=== PATIENT | female | born 1950 | race Caucasian/White ===

== ENCOUNTER 2019-11-17 13:43 | Emergency (ER) | payer BC, MEDICARE, OTHER ==
[~2019-11-17] VITALS: Ht 157.5 cm; Wt 130.0 kg
[2019-11-17] MEDS ORDERED: SODIUM CHLORIDE FLUSH 10ML SYR IVF ONE (14:30)
--- NOTE | 2019-11-17 14:42 | NUR ---
PT WITH SOB X1 MONTH. PT WITH RECENT TREATMENT OF BRONCHITIS, STATES IT HAD NEVER GONE AWAY. PT DENIES HX COPD, ASTHMA. PT DENIES CP. PT TO ALL MONITORING EQUIPMENT
[2019-11-17 14:55] LABS: BASOPHILS # (AUTO) 0.05 x10^3/uL (0-0.1); BASOPHILS % (AUTO) 1 % (0-1); EOSINOPHILS # (AUTO) 0.26 x10^3/uL (0-0.4); EOSINOPHILS % (AUTO) 3 % (1-7); LYMPHOCYTES # (AUTO) 1.68 x10^3/uL (1-3.4); LYMPHOCYTES % (AUTO) 20 % (22-44); MD NO; MEAN CORPUSCULAR HEMOGLOBIN 33.9 pg (27.0-34.8); MEAN CORPUSCULAR HGB CONC 32.7 g/dL (32.4-35.8); MEAN CORPUSCULAR VOLUME 103.8 fL (80-100); MEAN PLATELET VOLUME 8.4 fL (7.4-10.4); MONOCYTES # (AUTO) 0.92 x10^3/uL (0.2-0.8); MONOCYTES % (AUTO) 11 % (2-9); NEUTROPHILS # (AUTO) 5.66 x10^3/uL (1.8-6.8); NEUTROPHILS % (AUTO) 66 % (42-75); PLATELET COUNT 320 x10^3/uL (130-400); RED BLOOD COUNT 4.08 x10^6/uL (3.82-5.3); RED CELL DISTRIBUTION WIDTH 14.4 % (9.6-15.2)
[2019-11-17 14:57] LABS: ALANINE AMINOTRANSFERASE 23 U/L (12-78); ALBUMIN 3.4 g/dL (3.4-5.0); ANION GAP 7 mmol/L (5-15); CALCIUM 8.8 mg/dL (8.5-10.1); CHLORIDE 106 mmol/L (98-107); CREATININE 0.71 mg/dL (0.55-1.02)
[2019-11-17] MEDS ORDERED: ALBUTEROL/IPRATROPIUM 2.5MG/0.5MG, 3 ML NPPB ONE (15:00)
[2019-11-17 15:01] LABS: ALKALINE PHOSPHATASE 106 U/L (45-117); BILIRUBIN,TOTAL 0.4 mg/dL (0.2-1.0); TOTAL PROTEIN 8.2 g/dL (6.4-8.2); TROPONIN I < 0.015 ng/mL (0.000-0.045)
[2019-11-17] MEDS ORDERED: ALBUTEROL/IPRATROPIUM 2.5MG/0.5MG, 3 ML ONE (15:10)
[2019-11-17 16:18] VITALS: BP 120/58
--- NOTE | 2019-11-17 16:19 | NUR ---
PT STATES MUCH RELIEF FROM BREATHING TX. PLAN FOR DC HOME
== END 2019-11-17 17:18 | disposition home or self-care (01) ==
LOC: ED 17:05
DX: R06.2 Wheezing (principal)
CPT/HCPCS: 36415; 71045; 80053; 83880; 84484; 85025; 93005; 94640; 99284; J7620

== ENCOUNTER 2020-01-15 18:22 | Inpatient (IN) | payer BC, MEDICARE, OTHER ==
[~2020-01-15] VITALS: Ht 157.5 cm; Wt 124.8 kg
--- NOTE | 2020-01-15 18:50 | NUR ---
THIS IS A 69 YO F BIB EMS W/ C/O RT KNEE PAIN 01/11 AFTER A FALL X1 MONTH AGO. PT REPORTS RECEIVING CORTIZONE AND IBUPROFEN WHEN EVALUATED 1 MONTH AGO W/ NO RELIEF. PT HAS BEEN UNABLE TO WALK X1 MONTH. DEVELOPED ECCHYMOSIS FROM RT HIP DOWN TO RT KNEE. RESP EVEN AND UNLABORED. NADN. PT RESTING ON GURNEY W/ FAMILY AT BEDSIDE AND CALL LIGHT IN REACH. DENIES FURTHER NEEDS AT THIS TIME.
[2020-01-15] MEDS ORDERED: HYDROcodone/APAP 5/325 TABLET ONE (18:55)
[2020-01-15] MEDS ORDERED: KETOROLAC 30 MG/1 ML ONE (18:55)
[2020-01-15] MEDS ORDERED: ONDANSETRON ODT 8 MG ONE (18:56)
[2020-01-15] MEDS ORDERED: ONDANSETRON ODT 8 MG PO ONE (19:00)
[2020-01-15] MEDS ORDERED: HYDROcodone/APAP 5/325 TABLET PO ONE (19:00)
[2020-01-15] MEDS ORDERED: KETOROLAC 30 MG/1 ML IM ONE (19:00)
[2020-01-15] MEDS ORDERED: METF10007 PO (19:28)
[2020-01-15] MEDS ORDERED: LEVO75TA5 PO (19:28)
[2020-01-15] MEDS ORDERED: LISI-167 PO (19:28)
[2020-01-15] MEDS ORDERED: ATOR10TA9 PO (19:28)
[2020-01-15 19:31] LABS: BASOPHILS % (AUTO) 0 % (0-1); EOSINOPHILS # (AUTO) 0.03 x10^3/uL (0-0.4); EOSINOPHILS % (AUTO) 0 % (1-7); LYMPHOCYTES # (AUTO) 1.32 x10^3/uL (1-3.4); LYMPHOCYTES % (AUTO) 10 % (22-44); MD NO; MEAN CORPUSCULAR HEMOGLOBIN 32.8 pg (27.0-34.8); MEAN CORPUSCULAR HGB CONC 32.8 g/dL (32.4-35.8); MONOCYTES # (AUTO) 0.64 x10^3/uL (0.2-0.8); MONOCYTES % (AUTO) 5 % (2-9); NEUTROPHILS # (AUTO) 10.74 x10^3/uL (1.8-6.8); NEUTROPHILS % (AUTO) 84 % (42-75); PLATELET COUNT 325 x10^3/uL (130-400); RED BLOOD COUNT 4.82 x10^6/uL (3.82-5.3)
--- NOTE | 2020-01-15 19:31 | NUR ---
PT IN RAD.
[2020-01-15 19:36] LABS: ALANINE AMINOTRANSFERASE 45 U/L (12-78); ALBUMIN 3.4 g/dL (3.4-5.0); ANION GAP 9 mmol/L (5-15); CALCIUM 10.3 mg/dL (8.5-10.1); CHLORIDE 107 mmol/L (98-107); CREATININE 0.58 mg/dL (0.55-1.02)
[2020-01-15 19:38] LABS: ALKALINE PHOSPHATASE 90 U/L (45-117); BILIRUBIN,TOTAL 0.4 mg/dL (0.2-1.0); TOTAL PROTEIN 8.3 g/dL (6.4-8.2)
--- NOTE | 2020-01-15 20:28 | NUR ---
REPORT GIVEN TO JORGE FAUSTIN. PT IS READY FOR TRANSPORT.
[2020-01-15] MEDS ORDERED: TEMAZEPAM 15 MG CAPSULE PO PRN (20:30)
[2020-01-15] MEDS ORDERED: POLYETHYLENE GLYCOL 17 GM PACKET PO PRN (20:30)
[2020-01-15] MEDS ORDERED: ACETAMINOPHEN 325 MG TABLET PO PRN (20:30)
[2020-01-15] MEDS ORDERED: ONDANSETRON 2MG/ML, 2ML IVPush PRN (20:30)
[2020-01-15] MEDS ORDERED: LABETALOL 5MG/ML, 20ML IVPush PRN (20:30)
[2020-01-15] MEDS ORDERED: BISACODYL 10 MG SUPP PR PRN (20:30)
[2020-01-15] MEDS ORDERED: ENALAPRILAT 1.25 MG/ML, 2ML IVPush PRN (20:30)
[2020-01-15] MEDS ORDERED: ONDANSETRON ODT 4 MG PO PRN (20:30)
[2020-01-15 21:52] VITALS: BP 120/76
[2020-01-15] MEDS ORDERED: TIMO5DRO33 EACHEYE (22:29)
[2020-01-15] MEDS ORDERED: LISI5TAB7 PO (22:29)
[2020-01-15] MEDS ORDERED: LATA7.5D EACHEYE (22:29)
[2020-01-15] MEDS: ENOXAPARIN 40 MG/0.4 ML SQ SCH (23:02)
[2020-01-15] MEDS: NYSTATIN OINT 15GM TP SCH (23:03)
[2020-01-15] MEDS: INSULIN LISPRO 100 UNITS/ML, PEN SQ-INSULIN SCH (23:04)
[2020-01-16 01:11] VITALS: BP 103/74
[2020-01-16 04:42] LABS: CULTURE INDICATED? YES; MICROSCOPIC INDICATED
[2020-01-16] MEDS: LEVOTHYROXINE 75 MCG TABLET PO SCH (05:05)
[2020-01-16 05:31] LABS: BASOPHILS # (AUTO) 0.07 x10^3/uL (0-0.1); BASOPHILS % (AUTO) 1 % (0-1); EOSINOPHILS # (AUTO) 0.07 x10^3/uL (0-0.4); EOSINOPHILS % (AUTO) 1 % (1-7); LYMPHOCYTES # (AUTO) 1.97 x10^3/uL (1-3.4); LYMPHOCYTES % (AUTO) 21 % (22-44); MD NO; MEAN CORPUSCULAR HEMOGLOBIN 32.9 pg (27.0-34.8); MEAN CORPUSCULAR HGB CONC 32.8 g/dL (32.4-35.8); MEAN CORPUSCULAR VOLUME 100.2 fL (80-100); MEAN PLATELET VOLUME 8.9 fL (7.4-10.4); MONOCYTES # (AUTO) 1.25 x10^3/uL (0.2-0.8); MONOCYTES % (AUTO) 14 % (2-9); NEUTROPHILS # (AUTO) 5.88 x10^3/uL (1.8-6.8); NEUTROPHILS % (AUTO) 64 % (42-75); PLATELET COUNT 308 x10^3/uL (130-400); RED BLOOD COUNT 4.46 x10^6/uL (3.82-5.3); RED CELL DISTRIBUTION WIDTH 13.1 % (9.6-15.2)
[2020-01-16 05:40] LABS: ALBUMIN 3.1 g/dL (3.4-5.0); ANION GAP 7 mmol/L (5-15); CALCIUM 9.1 mg/dL (8.5-10.1); CHLORIDE 107 mmol/L (98-107)
[2020-01-16 05:44] LABS: ALANINE AMINOTRANSFERASE 40 U/L (12-78); ALKALINE PHOSPHATASE 83 U/L (45-117); BILIRUBIN,TOTAL 0.4 mg/dL (0.2-1.0); CREATININE 0.59 mg/dL (0.55-1.02); TOTAL PROTEIN 7.3 g/dL (6.4-8.2)
[2020-01-16] MEDS: INSULIN LISPRO 100 UNITS/ML, PEN SQ-INSULIN SCH ×4 (07:12→19:55)
[2020-01-16 08:06] VITALS: BP 124/75
[2020-01-16] MEDS: CEFDINIR 300 MG CAPSULE PO SCH ×2 (08:09→20:41)
[2020-01-16] MEDS: SENNA/DOCUSATE TABLET PO SCH (08:09)
[2020-01-16] MEDS: metFORMIN 500 MG TABLET PO SCH (08:09)
[2020-01-16] MEDS: LISINOPRIL 10 MG TABLET PO SCH (08:10)
[2020-01-16] MEDS: NYSTATIN OINT 15GM TP SCH ×3 (08:10→22:18)
[2020-01-16 14:10] VITALS: BP 93/61
[2020-01-16 19:19] VITALS: BP 111/69
[2020-01-16] MEDS: ENOXAPARIN 40 MG/0.4 ML SQ SCH (20:42)
[2020-01-16] MEDS: ATORVASTATIN 10 MG TABLET PO SCH (20:42)
[2020-01-17 00:44] VITALS: BP 134/85
[2020-01-17] MEDS: LEVOTHYROXINE 75 MCG TABLET PO SCH (06:13)
[2020-01-17 07:09] VITALS: BP 114/76
[2020-01-17] MEDS: LISINOPRIL 10 MG TABLET PO SCH (07:36)
[2020-01-17] MEDS: INSULIN LISPRO 100 UNITS/ML, PEN SQ-INSULIN SCH ×4 (07:36→20:54)
[2020-01-17] MEDS: metFORMIN 500 MG TABLET PO SCH (07:36)
[2020-01-17] MEDS: CEFDINIR 300 MG CAPSULE PO SCH ×2 (07:36→20:55)
[2020-01-17] MEDS: SENNA/DOCUSATE TABLET PO SCH (07:36)
[2020-01-17] MEDS: NYSTATIN OINT 15GM TP SCH ×2 (07:37→16:16)
[2020-01-17 12:15] VITALS: BP 110/70
[2020-01-17 20:23] VITALS: BP 124/76
[2020-01-17] MEDS: ENOXAPARIN 40 MG/0.4 ML SQ SCH (20:55)
[2020-01-17] MEDS: ATORVASTATIN 10 MG TABLET PO SCH (20:57)
[2020-01-18 00:47] VITALS: BP 125/77
[2020-01-18] MEDS: NYSTATIN OINT 15GM TP SCH ×4 (02:47→21:08)
[2020-01-18] MEDS: LEVOTHYROXINE 75 MCG TABLET PO SCH (06:19)
[2020-01-18] MEDS: INSULIN LISPRO 100 UNITS/ML, PEN SQ-INSULIN SCH ×4 (07:25→21:00)
[2020-01-18 08:37] VITALS: BP 135/76
[2020-01-18] MEDS: LISINOPRIL 10 MG TABLET PO SCH (08:37)
[2020-01-18] MEDS: metFORMIN 500 MG TABLET PO SCH (08:38)
[2020-01-18] MEDS: SENNA/DOCUSATE TABLET PO SCH (08:38)
[2020-01-18] MEDS: CEFDINIR 300 MG CAPSULE PO SCH ×2 (08:38→21:08)
[2020-01-18] MEDS: ATORVASTATIN 10 MG TABLET PO SCH (08:38)
[2020-01-18 14:31] VITALS: BP 125/84
[2020-01-18 19:26] VITALS: BP 133/83
[2020-01-18] MEDS: ENOXAPARIN 40 MG/0.4 ML SQ SCH (21:08)
[2020-01-19 01:00] VITALS: BP 136/82
[2020-01-19] MEDS: LEVOTHYROXINE 75 MCG TABLET PO SCH (05:26)
[2020-01-19 06:38] VITALS: BP 118/77
[2020-01-19] MEDS: INSULIN LISPRO 100 UNITS/ML, PEN SQ-INSULIN SCH ×4 (07:00→20:49)
[2020-01-19] MEDS: SENNA/DOCUSATE TABLET PO SCH (09:00)
[2020-01-19] MEDS: NYSTATIN OINT 15GM TP SCH ×3 (09:00→20:50)
[2020-01-19] MEDS: ATORVASTATIN 10 MG TABLET PO SCH (11:47)
[2020-01-19] MEDS: metFORMIN 500 MG TABLET PO SCH (11:48)
[2020-01-19] MEDS: LISINOPRIL 10 MG TABLET PO SCH (11:48)
[2020-01-19] MEDS: CEFDINIR 300 MG CAPSULE PO SCH ×2 (11:48→20:50)
[2020-01-19 12:23] VITALS: BP 134/79
--- NOTE | 2020-01-19 15:27 | NUR ---
Green sheet implemented today for LE therex and edge of bed sitting to do self care/ADLS 2x daily with nursing Addendum: 01/19/20 at 1528 by Trang Dugan PT Amended: Links added.
[2020-01-19] MEDS: ENOXAPARIN 40 MG/0.4 ML SQ SCH (20:49)
[2020-01-19 21:00] VITALS: BP 133/83
[2020-01-20 00:57] VITALS: BP 143/83
[2020-01-20] MEDS: LEVOTHYROXINE 75 MCG TABLET PO SCH (05:20)
[2020-01-20 06:45] VITALS: BP 131/87
[2020-01-20] MEDS: INSULIN LISPRO 100 UNITS/ML, PEN SQ-INSULIN SCH ×4 (07:53→20:51)
[2020-01-20] MEDS: CEFDINIR 300 MG CAPSULE PO SCH ×2 (07:54→20:28)
[2020-01-20] MEDS: LISINOPRIL 10 MG TABLET PO SCH (07:54)
[2020-01-20] MEDS: metFORMIN 500 MG TABLET PO SCH (07:54)
[2020-01-20] MEDS: NYSTATIN OINT 15GM TP SCH ×3 (07:54→20:29)
[2020-01-20] MEDS: SENNA/DOCUSATE TABLET PO SCH (07:54)
[2020-01-20 12:00] VITALS: BP 105/71
[2020-01-20 19:52] VITALS: BP 105/72
[2020-01-20] MEDS: ATORVASTATIN 10 MG TABLET PO SCH (20:28)
[2020-01-20] MEDS: ENOXAPARIN 40 MG/0.4 ML SQ SCH (20:29)
[2020-01-21 01:54] VITALS: BP 149/82
[2020-01-21] MEDS: LEVOTHYROXINE 75 MCG TABLET PO SCH (05:02)
[2020-01-21] MEDS: INSULIN LISPRO 100 UNITS/ML, PEN SQ-INSULIN SCH ×3 (07:00→16:00)
[2020-01-21 07:41] VITALS: BP 126/78
[2020-01-21] MEDS: LISINOPRIL 10 MG TABLET PO SCH (08:15)
[2020-01-21] MEDS: CEFDINIR 300 MG CAPSULE PO SCH (08:15)
[2020-01-21] MEDS: metFORMIN 500 MG TABLET PO SCH (08:15)
[2020-01-21] MEDS: NYSTATIN OINT 15GM TP SCH ×2 (08:15→16:00)
[2020-01-21] MEDS: SENNA/DOCUSATE TABLET PO SCH (08:15)
[2020-01-21] MEDS: ATORVASTATIN 10 MG TABLET PO SCH (08:16)
[2020-01-21 13:20] VITALS: BP 105/71
[2020-01-21] MEDS ORDERED: ACET325T26 PO (14:55)
[2020-01-21] MEDS ORDERED: LISI5TAB7 PO (14:55)
== END 2020-01-21 18:08 | DRG 690 ==
LOC: ED 20:00 → EDIP 20:47 → 3N 20:52
PROVIDERS: ADMIT Internal Medicine; ATTEND Internal Medicine
PROC: 0T9B70Z Drainage of Bladder with Drainage Device, Via Natural or Artificial Opening (ICD-10-PCS; principal; 2020-01-16)
DX: N39.0 Urinary tract infection, site not specified (principal); E87.2 Acidosis; Z68.43 Body mass index [BMI] 50.0-59.9, adult; B95.4 Other streptococcus as the cause of diseases classified elsewhere; B96.20 Unspecified Escherichia coli [E. coli] as the cause of diseases classified elsewhere; D72.828 Other elevated white blood cell count; E11.9 Type 2 diabetes mellitus without complications; E66.01 Morbid (severe) obesity due to excess calories; E78.5 Hyperlipidemia, unspecified; E83.52 Hypercalcemia; E89.0 Postprocedural hypothyroidism; G89.29 Other chronic pain; I10 Essential (primary) hypertension; L89.892 Pressure ulcer of other site, stage 2; M17.11 Unilateral primary osteoarthritis, right knee; R32 Unspecified urinary incontinence; R62.7 Adult failure to thrive; W01.0XXA Fall on same level from slipping, tripping and stumbling without subsequent striking against object, initial encounter; Y93.89 Activity, other specified; Y92.091 Bathroom in other non-institutional residence as the place of occurrence of the external cause; Y99.8 Other external cause status; Z74.01 Bed confinement status; Z79.84 Long term (current) use of oral hypoglycemic drugs
CPT/HCPCS: 36415; 80053; 81001; 82550; 82962; 83735; 84100; 84443; 85025; 87077; 87086; 87147; 87186; 96372; 99285; G0378; J1650; J1885; Q0162; J1815

== ENCOUNTER 2020-04-06 18:09 | Emergency (ER) | payer MEDICARE, OTHER ==
[~2020-04-06] VITALS: Ht 157.5 cm; Wt 124.0 kg
[~2020-04-06 18:09] MED LIST: ACET325T26 PO; ATOR10TA9 PO; LATA7.5D EACHEYE; LEVO75TA5 PO; LISI-167 PO; LISI5TAB7 PO; METF10007 PO; TIMO5DRO33 EACHEYE
--- NOTE | 2020-04-06 18:41 | NUR ---
PT WHEELED TO ROOM, ABLE TO TRANSFER TO BED. NO SIGNS OF DISTRESS. WILL CONTINUE TO MONITOR.
--- NOTE | 2020-04-06 18:48 | NUR ---
REPORT GIVEN TO RAMIN MARTINEZ.
--- NOTE | 2020-04-06 18:57 | NUR ---
BEDSIDE REPORT FROM LISA RN, PT CARE TRANSFERRED AT THIS TIME. RESTING [place], FAMILY AT BS, PT NAD, RESP WNL, VSS, P/W/D, CALL LIGHT ON LAP, WCTM.
--- NOTE | 2020-04-06 19:32 | NUR ---
RN TO [employer] TO GET FOOD PER PT REQUEST. PT INFORMED THAT MEAL IS CHARGED TO VISIT ACCT. PT RESTING IN GURNEY, NAD, RESP WNL, P/W/D, WCTM. WAITING FOR RECHECK
[2020-04-06 20:47] VITALS: BP 113/55
--- NOTE | 2020-04-06 21:00 | NUR ---
LATE ENTRY: RN CALLED [facility]. EMPLOYEE AT [place] STATED THEY HAD PT ROOM NUMBER [id number], AND THAT SHE COULD BE SENT BACK TO [facility]. PT FAMILY INFORMED.
== END 2020-04-06 21:20 | disposition home or self-care (01) ==
LOC: ED 18:46
DX: M13.161 Monoarthritis, not elsewhere classified, right knee (principal); I10 Essential (primary) hypertension; E11.9 Type 2 diabetes mellitus without complications; Z86.39 Personal history of other endocrine, nutritional and metabolic disease
CPT/HCPCS: 99283

== ENCOUNTER 2021-07-10 10:00 | Observation (INO) | payer MEDICARE, OTHER ==
[~2021-07-10] VITALS: Ht 157.5 cm; Wt 122.2 kg
--- NOTE | 2021-07-10 10:20 | NUR ---
PT BIB EMS FROM [facility]. PT IS AN [place] FROM THE [place]. [facility] WAS TRYING TO GET HER PLACEMENT AT A SNF BUT PT REFUSED. PT SAID SHE WOULD RATHER GO TO ER TO GET MEDICALLY CLEARED.
[2021-07-10 11:30] LABS: ALBUMIN 2.9 g/dL (3.4-5.0); ANION GAP 6 mmol/L (5-15); CALCIUM 8.8 mg/dL (8.5-10.1); CHLORIDE 107 mmol/L (98-107); CREATININE 0.46 mg/dL (0.55-1.02)
[2021-07-10 11:32] LABS: BASOPHILS % (AUTO) 1 % (0-1); EOSINOPHILS % (AUTO) 3 % (1-7); LYMPHOCYTES % (AUTO) 25 % (22-44); MEAN CORPUSCULAR HEMOGLOBIN 33.1 pg (27.0-34.8); MEAN CORPUSCULAR HGB CONC 33.6 g/dL (32.4-35.8); MEAN PLATELET VOLUME 8.7 fL (7.4-10.4); MONOCYTES % (AUTO) 12 % (2-9); NEUTROPHILS % (AUTO) 60 % (42-75); PLATELET COUNT 323 x10^3/uL (130-400); RED BLOOD COUNT 3.82 x10^6/uL (3.82-5.3); RED CELL DISTRIBUTION WIDTH 14.5 % (9.6-15.2)
--- NOTE | 2021-07-10 16:48 | NUR ---
PT SOILED HERSELF. PT CLEANED. MARTINEZ CARE PERFORMED. UA WALKED TO LAB
[2021-07-10 17:00] LABS: MICROSCOPIC INDICATED
--- NOTE | 2021-07-10 21:29 | NUR ---
PT MOVED TO HOSPITAL BED
[2021-07-11] MEDS ORDERED: ACETAMINOPHEN 325 MG TABLET ONE ×2 (05:49→16:27)
[2021-07-11] MEDS ORDERED: ACETAMINOPHEN 325 MG TABLET PO ONE (06:00)
[2021-07-11] MEDS ORDERED: LEVO150T5 PO (07:20)
[2021-07-11] MEDS ORDERED: LISI2.5T12 PO (07:20)
--- NOTE | 2021-07-11 07:20 | NUR ---
REPORT FROM MARY FAUSTIN. MED REC UPDATED. PT CLEANED OF URINE. NO COMPLAINTS. TURNED IN BED. VSS.
--- NOTE | 2021-07-11 08:19 | NUR ---
GIVEN BREAKFAST. JOEY PLACED. ASKED MD TO ORDER HOME MEDS.
--- NOTE | 2021-07-11 08:51 | NUR ---
report to oanh oviedo. as
[2021-07-11] MEDS: TEMPLATE NON-FORMULARY MED. (Timolol Maleate 1 DROP) EACHEYE SCH (09:00)
--- NOTE | 2021-07-11 09:24 | NUR ---
PT MOVED TO ROOM 14 AT THIS TIME, PT CURRENTLY ON HOSPITAL BED, NADN AT THIS TIME, MONITORING IN PLACE, [place].
--- NOTE | 2021-07-11 09:42 | NUR ---
SPOKE WITH [facility]. THEY ARE NOT ACCEPTING PATIENTS DUE TO STAFFING
[2021-07-11] MEDS: ATORVASTATIN 10 MG TABLET PO SCH (10:03)
[2021-07-11] MEDS: metFORMIN XR 500 MG TAB.ER.24H PO SCH (10:03)
[2021-07-11] MEDS: LISINOPRIL 5 MG TABLET PO SCH (10:03)
[2021-07-11] MEDS: LEVOTHYROXINE 150 MCG TABLET PO SCH (10:03)
[2021-07-11] MEDS: ACETAMINOPHEN 325 MG TABLET PO PRN (16:27)
--- NOTE | 2021-07-11 20:49 | NUR ---
REPORT TO RAMIN MARTINEZ.
--- NOTE | 2021-07-11 21:50 | NUR ---
REPORT RECEIVED FROM MED FAUSTIN, PT CARE TRANSFERRED AT THIS TIME. PT NAD, SITTING UP IN BED IN ROOM, DENIES ADDITIONAL QUESTIONS REGARDING POC, DENIES ADDITIONAL NEEDS, BED IN LOWEST, RAILS ENGAGED, CALL LIGHT ON LAP, WCTM.
[2021-07-11] MEDS: LATANOPROST OPHTH 0.005%, 2.5ML EACHEYE SCH (22:20)
[2021-07-11] MEDS ORDERED: NYSTATIN TOPICAL POWDER 15GM TP PRN (22:30)
--- NOTE | 2021-07-11 22:33 | NUR ---
PT MEDICATED PER MAR, LINENS CHANGED AFTER BM, SO AT BS TO VISIT, DENIES ADDITIONAL NEEDS, NO OTHER CHANGES, WCTM.
--- NOTE | 2021-07-12 | NUR ---
Patient is resting comfortably in bed. Bed in lowest, rails engaged, call light on lap. EYES CLOSED, EVEN AND UNLABORED RESPIRATIONS AT THIS TIME. TM.
[2021-07-12] MEDS ORDERED: ACETAMINOPHEN 325 MG TABLET ONE ×3 (00:46→10:39)
[2021-07-12] MEDS: ACETAMINOPHEN 325 MG TABLET PO PRN ×2 (01:03→10:41)
--- NOTE | 2021-07-12 01:26 | NUR ---
PT MEDICATED PER MAR DUE TO MINOR LEG DISCOMFORT, PT REPOSITIONED FOR INCREASED COMFORT, PROVIDED ICE WATER AND NOW DECLINES ADDITIONAL NEEDS. NAD, BED IN LOWEST, RAILS ENGAGED, CALL LIGHT ON LAP, TM.
--- NOTE | 2021-07-12 03:06 | NUR ---
Patient is resting comfortably in bed. Bed in lowest, rails engaged, call light on lap. EYES CLOSED, EVEN AND UNLABORED RESPIRATIONS NOTED. WCTM.
--- NOTE | 2021-07-12 05:18 | NUR ---
Patient is resting comfortably in bed. Bed in lowest, rails engaged, call light on lap. EYES CLOSED, EVEN AND UNLABORED RESPIRATIONS NOTED. WCTM. BREAKFAST TRAY ORDERED.
--- NOTE | 2021-07-12 06:28 | NUR ---
PT LINENS CLEANED AND CHANGED, PT ASSISTED TO LAY ON OTHER SIDE WITH PILLOWS FOR COMFORT AND SUPPORT, BARRIER CREAM APPLIED SKIN PROTECTANT. PT NAD, RESTING WITH BED IN LOWEST, RAILS ENGAGED, CALL LIGHT ON LAP. DENIES ADDITIONAL QUESTIONS OR NEEDS AT THIS TIME. WCTM.
[2021-07-12] MEDS: LEVOTHYROXINE 150 MCG TABLET PO SCH (07:08)
--- NOTE | 2021-07-12 07:12 | NUR ---
MICHELLE AT BEDSIDE, REPORT TAKEN. NAD NOTED IN PT AT THIS TIME. HOB POSITIONED FOR COMFORT. CALL LIGHT IN REACH.
--- NOTE | 2021-07-12 07:15 | NUR ---
REPORT TO AISHA FAUSTIN
--- NOTE | 2021-07-12 08:33 | NUR ---
PT SITTING UP IN BED WITH TELEVISION ON, RESTING WITH EYE CLOSED. NAD NOTED AT THIS TIME. RESPIRATIONS EVEN AND UNLABORED.
[2021-07-12] MEDS: ATORVASTATIN 10 MG TABLET PO SCH (09:00)
[2021-07-12] MEDS: metFORMIN XR 500 MG TAB.ER.24H PO SCH (09:00)
[2021-07-12] MEDS: TEMPLATE NON-FORMULARY MED. (Timolol Maleate 1 DROP) EACHEYE SCH (09:00)
[2021-07-12] MEDS: LISINOPRIL 5 MG TABLET PO SCH (09:00)
--- NOTE | 2021-07-12 09:37 | NUR ---
PT TOOK HER OWN EYE DROPS FROM HOME. NONADMINISTER RECORDED IN EMAR. ERMD AWARE. AWAITING SOCIAL WORK ASSESSMENT OF PT AND PLACEMENT FOR SNF. PT GIVEN MEAL TRAY. NAD NOTED AT THIS TIME. PT WATCHING TELEVISION.
--- NOTE | 2021-07-12 10:42 | NUR ---
call light answered. pt states having knee pain. pt requesting motrin. tylenol in emar. pt agreeable to tylenol. pt medicated per order.
--- NOTE | 2021-07-12 12:15 | NUR ---
pt resting comfortably. qamar rn at bedside to assist in changing sheets and replacing purewick. pt cleaned and skin barrier cream reapplied.
--- NOTE | 2021-07-12 18:54 | NUR ---
dinner tray provided for pt. pt in good spirits as stopped by. still wants to move forward with poc.
--- NOTE | 2021-07-12 18:55 | NUR ---
mendez number is [phone] sw unable to get a hold of him all day. number here and states he will keep his phone on
--- NOTE | 2021-07-12 20:06 | NUR ---
PT RESTING COMFORTABLY. PT ATE COMPLETE MEAL. CALL LIGHT IN REACH.
[2021-07-12] MEDS: LATANOPROST OPHTH 0.005%, 2.5ML EACHEYE SCH (21:00)
--- NOTE | 2021-07-12 22:15 | NUR ---
REPORT FROM RAMIN CHAVEZ. PT RESTING IN HOSPITAL BED W EYES CLOSED. RESPIRATIONS EVEN/UNLABORED. CALL LIGHT WITHIN REACH.
--- NOTE | 2021-07-12 23:23 | NUR ---
PT CONTINUES TO REST CALMLY IN HOSPITAL BED. EVEN/REGULAR RESPIRATIONS NOTED.
--- NOTE | 2021-07-13 00:37 | NUR ---
PT RESTING IN GURNEY W EYES CLOSED. EVEN/REGULAR RESPIRATIONS NOTED.
--- NOTE | 2021-07-13 01:49 | NUR ---
PT AWAKE. SHEETS CHANGED; CLEAN PURWIC IN PLACE. BP/SPO2 WNL. PT DENIES NEEDS/COMPLAINTS.
--- NOTE | 2021-07-13 03:32 | NUR ---
PATIENT RESTING IN BED WITH EYES CLOSED. NAD. CALL JOHNSON IN REACH. WILL CONTINUE TO MONITOR.
--- NOTE | 2021-07-13 04:39 | NUR ---
PROVIDED PATIENT WITH WATER REQUESTED. PATIENT DENIES ANY OTHER NEEDS AT THIS TIME. WILL CONTINUE TO MONITOR.
--- NOTE | 2021-07-13 07:25 | NUR ---
Report from RAMIN Harvey. Pt sleeping, RR equal and unlabored. Will order breakfast and continue to monitor. Pt is in ER waiting for SNF placement. VSS. Call ballard in reach.
[2021-07-13] MEDS: TEMPLATE NON-FORMULARY MED. (Timolol Maleate 1 DROP) EACHEYE SCH (09:00)
--- NOTE | 2021-07-13 09:04 | NUR ---
Pt awake, sitting up in bed watching tv. VSS, breakfast tray ordered for pt. Pt says her is coming to see her today. Pt waiting for SNF bed will f/u with case management for ETA/Plan.
[2021-07-13] MEDS: metFORMIN XR 500 MG TAB.ER.24H PO SCH (09:45)
[2021-07-13] MEDS: ATORVASTATIN 10 MG TABLET PO SCH (09:45)
[2021-07-13] MEDS: LEVOTHYROXINE 150 MCG TABLET PO SCH (09:46)
[2021-07-13] MEDS: LISINOPRIL 5 MG TABLET PO SCH (09:46)
--- NOTE | 2021-07-13 09:48 | NUR ---
Pt provided breakfast, pt has been collections director light multiple times since this promotion writer has taken report. Pt was provided AIDET multiple times, allowed time to ask questions and informed that I am not available during times as I have other highly acute patients. Pt told me that her is coming to visit her today and she will hopefully go home.
--- NOTE | 2021-07-13 10:04 | NUR ---
Pt has her own eye drops and has been admin to herself.
--- NOTE | 2021-07-13 13:22 | NUR ---
here now keeps calling in home sales consultant light wanting to make sure we know what meds we are giving her. AIDET provided went over POC again. Also set boundries with here now re: acuity in this dept and demands of other pts. The fact that this pt refused the placement we found.
--- NOTE | 2021-07-13 15:36 | NUR ---
Pt with large loose BM, incon. of urine and stool. Pt has been in ER for 5 days with no end in site. Pt is unable to provide much assist requires x2 people to change, pt sheng has been bringing her sodas and sugary foods. Spoke with [facility] social insurance specialist who says they are still looking for placement for this pt. Pt tells this parts data writer that the only reason she can't go home is because she has no bed, that her bed had bedbugs. Pt says her is staying in a hotel. Discussed case with COBY Gilmore who placed admitting orders for this pt.
[2021-07-13] MEDS ORDERED: ENALAPRILAT 1.25 MG/ML, 2ML IVPush PRN (16:30)
[2021-07-13] MEDS ORDERED: ENOXAPARIN 40 MG/0.4 ML SQ SCH (16:30)
[2021-07-13] MEDS ORDERED: ONDANSETRON ODT 4 MG PO PRN (16:30)
[2021-07-13] MEDS ORDERED: DOCUSATE 100 MG CAPSULE PO PRN (16:30)
[2021-07-13] MEDS ORDERED: DIPHENHYDRAMINE 25 MG CAPSULE PO PRN (16:30)
--- NOTE | 2021-07-13 18:22 | NUR ---
Pt was cleaned up multiple times on day shift, pt says she does know when she is going to have BM but its easier for her just to go in a diaper. All pt belongings placed on gurney for transport to floor. Report to med/surg nurse.
[2021-07-13 20:14] VITALS: BP 131/78
[2021-07-13] MEDS: ACETAMINOPHEN 325 MG TABLET PO PRN (21:49)
[2021-07-13] MEDS: LATANOPROST OPHTH 0.005%, 2.5ML EACHEYE SCH (21:50)
[2021-07-14 00:30] VITALS: BP 133/85
[2021-07-14] MEDS: LEVOTHYROXINE 150 MCG TABLET PO SCH (05:37)
[2021-07-14 08:42] VITALS: BP 153/83
[2021-07-14] MEDS: TEMPLATE NON-FORMULARY MED. (Timolol Maleate 1 DROP) EACHEYE SCH (09:00)
[2021-07-14] MEDS: metFORMIN XR 500 MG TAB.ER.24H PO SCH (09:09)
[2021-07-14] MEDS: LISINOPRIL 5 MG TABLET PO SCH (09:09)
[2021-07-14] MEDS: ATORVASTATIN 10 MG TABLET PO SCH (09:10)
[2021-07-14 12:11] VITALS: BP 123/73
== END 2021-07-14 20:05 | disposition home or self-care (01) ==
LOC: ED 10:47 → EDIP 16:05 → 3N 07-13 18:37
PROVIDERS: ADMIT Emergency Medicine; ATTEND Hospitalist
DX: M25.569 Pain in unspecified knee (principal); Z20.822 Contact with and (suspected) exposure to COVID-19; G89.21 Chronic pain due to trauma; S50.862A Insect bite (nonvenomous) of left forearm, initial encounter; S50.861A Insect bite (nonvenomous) of right forearm, initial encounter; E89.0 Postprocedural hypothyroidism; R60.0 Localized edema; I10 Essential (primary) hypertension; E78.5 Hyperlipidemia, unspecified; M19.90 Unspecified osteoarthritis, unspecified site; E11.9 Type 2 diabetes mellitus without complications; R62.7 Adult failure to thrive; E66.01 Morbid (severe) obesity due to excess calories; Z79.84 Long term (current) use of oral hypoglycemic drugs; Z79.899 Other long term (current) drug therapy; Z72.9 Problem related to lifestyle, unspecified; Z74.01 Bed confinement status; W57.XXXA Bitten or stung by nonvenomous insect and other nonvenomous arthropods, initial encounter; Y93.89 Activity, other specified; Y92.89 Other specified places as the place of occurrence of the external cause
CPT/HCPCS: 36415; 71045; 80048; 81001; 82040; 82962; 85025; 87077; 87086; 87186; 87635; 96372; 97162; 97166; 97530; 99284; G0378; J1650; 99285